=== PATIENT | female | born 1995 | race Asian ===

== ENCOUNTER 2017-02-21 12:39 | Emergency (ER) | payer MEDICAID ==
[~2017-02-21] VITALS: Ht 154.9 cm; Wt 54.5 kg
[2017-02-21] MEDS ORDERED: IBUPROFEN 800 MG TABLET PO ONE (16:00)
[2017-02-21 17:00] VITALS: BP 113/59
== END 2017-02-21 17:02 | disposition home or self-care (01) ==
LOC: EMS 12:44
DX: S86.812A Strain of other muscle(s) and tendon(s) at lower leg level, left leg, initial encounter (principal); X58.XXXA Exposure to other specified factors, initial encounter; Y93.89 Activity, other specified; Y92.89 Other specified places as the place of occurrence of the external cause; Y99.8 Other external cause status
CPT/HCPCS: 81025; 99284

== ENCOUNTER 2017-06-24 16:30 | Emergency (ER) | payer SELFPAY ==
[~2017-06-24] VITALS: Ht 157.5 cm; Wt 54.0 kg
[2017-06-24 16:34] VITALS: BP 114/61
[2017-06-24] MEDS ORDERED: LIDOCAINE HCL/PF 1% 2 ML VIAL IM ONE (17:00)
[2017-06-24] MEDS ORDERED: CefTRIAXone SODIUM 1 GM/VIAL IM ONE (17:00)
== END 2017-06-24 18:03 | disposition home or self-care (01) ==
LOC: EMS 16:35
DX: L02.416 Cutaneous abscess of left lower limb (principal); L03.116 Cellulitis of left lower limb; J45.909 Unspecified asthma, uncomplicated
CPT/HCPCS: 96372; 99283; J0696; J3490